=== PATIENT | male | born 1950 | race Caucasian/White ===

== ENCOUNTER 2023-11-12 09:50 | Emergency (ER) | payer BC, MEDICARE, OTHER ==
[2023-11-12] MEDS: Cyclobenzaprine 10 MG Tab PO ONE (10:28)
[2023-11-12] MEDS: Ibuprofen 600 MG Tab PO ONE (10:28)
== END 2023-11-12 11:10 | disposition home or self-care (01) ==
LOC: KA.ED 09:50
DX: M62.830 Muscle spasm of back (principal); Z88.8 Allergy status to other drugs, medicaments and biological substances; Z79.899 Other long term (current) drug therapy
CPT/HCPCS: 99283; A9270-GY

== ENCOUNTER 2024-08-18 10:40 | Emergency (ER) | payer MEDICARE ==
[2024-08-18] MEDS ORDERED: Sodium Chloride 0.9% 10 ML Syringe FLUSH PRN (11:01)
[2024-08-18 11:14] LABS: BASOPHILS ABSOLUTE AUTO 0.01 10^3/uL (0.00-0.10); BASOPHILS PERCENT AUTO 0.1 % (0.0-1.0); EOSINOPHILS ABSOLUTE AUTO 0.18 10^3/uL (0.10-0.30); EOSINOPHILS PERCENT AUTO 2.4 % (1.0-3.0); HEMATOCRIT 46.7 % (40.0-52.0); HEMOGLOBIN 14.9 g/dL (13.0-17.0); LYMPHOCYTES ABSOLUTE AUTO 2.03 10^3/uL (1.00-4.00); LYMPHOCYTES PERCENT AUTO 26.7 % (20.0-40.0); MEAN CORPUSCULAR HEMOGLOBIN 28.8 pg (27.0-31.0); MEAN CORPUSCULAR HGB CONC 31.9 g/dL (32.0-36.0); MEAN CORPUSCULAR VOLUME 90.3 fL (82.0-92.0); MEAN PLATELET VOLUME 8.8 fL (7.4-10.4); MONOCYTES ABSOLUTE AUTO 0.41 10^3/uL (0.10-0.80); MONOCYTES PERCENT AUTO 5.4 % (2.0-8.0); NEUTROPHILS ABSOLUTE AUTO 4.97 10^3/uL (2.50-7.00); NEUTROPHILS PERCENT AUTO 65.4 % (50.0-70.0); PLATELET COUNT,PLT 293 10^3/uL (150-400); RED BLOOD CELL COUNT 5.17 10^6/uL (4.50-6.00); RED CELL DISTRIBUTION WIDTH 12.6 % (11.5-14.5)
[2024-08-18 11:29] LABS: ALBUMIN 3.14 g/dL (3.40-5.00); ANION GAP 13.2 mmol/L (5-15); BILIRUBIN TOTAL 0.5 mg/dL (0.2-1.0); CALCIUM 9.1 mg/dL (8.7-10.3); CARBON DIOXIDE,CO2 27.6 mmol/L (21.0-32.0); CREATININE 1.11 mg/dL (0.51-1.17); EST CRCL DRUG DOSING (CG) 58.46 mL/min; POTASSIUM,K 3.8 mmol/L (3.5-5.1); PROTEIN TOTAL,TP 7.3 g/dL (6.4-8.2)
[2024-08-18] MEDS: Sodium Chloride 0.9% 50 ML IV SCH (11:55)
[2024-08-18] MEDS: Iopamidol 755 Mg/ML 100 ML Bottle IV ONE (11:55)
[2024-08-18] MEDS: Sodium Chloride 0.9% 1,000 ML IV ONE (12:10)
[2024-08-18] MEDS: Loperamide 2 MG Cap PO ONE (14:18)
== END 2024-08-18 14:29 | disposition home or self-care (01) ==
LOC: KA.ED 10:40
DX: K52.9 Noninfective gastroenteritis and colitis, unspecified (principal); I25.10 Atherosclerotic heart disease of native coronary artery without angina pectoris; Z88.8 Allergy status to other drugs, medicaments and biological substances; Z79.899 Other long term (current) drug therapy
CPT/HCPCS: 36415; 71046; 74177; 80053; 85025; 87428-QW; 96360; 99284; 99284-25; A9270-GY; J3490; J7030; Q9967

== ENCOUNTER 2025-03-06 20:38 | Emergency (ER) | payer MEDICARE ==
[2025-03-06 21:13] LABS: BASOPHILS ABSOLUTE AUTO 0.02 10^3/uL (0.00-0.10); BASOPHILS PERCENT AUTO 0.2 % (0.0-1.0); EOSINOPHILS ABSOLUTE AUTO 0.30 10^3/uL (0.10-0.30); EOSINOPHILS PERCENT AUTO 3.7 % (1.0-3.0); IMMATURE GRAN ABSOLUTE AUTO 0.01 10^3/uL (0.00-0.04); IMMATURE GRAN PERCENT AUTO 0.1 % (0.0-0.4); LYMPHOCYTES ABSOLUTE AUTO 2.62 10^3/uL (1.00-4.00); LYMPHOCYTES PERCENT AUTO 32.7 % (20.0-40.0); MEAN PLATELET VOLUME 8.7 fL (7.4-10.4); MONOCYTES ABSOLUTE AUTO 0.66 10^3/uL (0.10-0.80); MONOCYTES PERCENT AUTO 8.2 % (2.0-8.0); NEUTROPHILS ABSOLUTE AUTO 4.40 10^3/uL (2.50-7.00); NEUTROPHILS PERCENT AUTO 55.1 % (50.0-70.0); PLATELET COUNT,PLT 253 10^3/uL (150-400); RED BLOOD CELL COUNT 4.65 10^6/uL (4.50-6.00); RED CELL DISTRIBUTION WIDTH 13.9 % (11.5-14.5); WHITE BLOOD CELL COUNT,WBC 8.01 10^3/uL (5.00-10.00)
[2025-03-06 21:29] LABS: ALANINE AMINOTRANSFERASE,ALT 12 U/L (14-63); BILIRUBIN TOTAL 0.3 mg/dL (0.2-1.0); BLOOD UREA NITROGEN,BUN 12 mg/dL (7-18); CARBON DIOXIDE,CO2 26.2 mmol/L (21.0-32.0); CHLORIDE,CL 107 mmol/L (98-107); CREATININE 1.00 mg/dL (0.51-1.17); EST CRCL DRUG DOSING (CG) 63.88 mL/min; GLUCOSE RANDOM 139 mg/dL (70-140); POTASSIUM,K 4.2 mmol/L (3.5-5.1); PROTEIN TOTAL,TP 7.0 g/dL (6.4-8.2); SODIUM,NA 142 mmol/L (136-145)
[2025-03-06 21:34] LABS: ASPARTATE AMNIOTRANSFERASE,AST < 9 U/L (15-37); ESTIMATED GFR 78 mL/min (>=60)
== END 2025-03-06 22:00 | disposition home or self-care (01) ==
LOC: KA.ED 20:38
DX: L03.115 Cellulitis of right lower limb (principal); I25.10 Atherosclerotic heart disease of native coronary artery without angina pectoris; Z88.8 Allergy status to other drugs, medicaments and biological substances; Z79.899 Other long term (current) drug therapy
CPT/HCPCS: 36415; 73630-RT; 80053; 83605; 85025; 86140; 96372; 99283; 99284; A9270-GY; J0696; J2003